=== PATIENT | male | born 2000 | race Caucasian/White ===

== ENCOUNTER 2023-05-09 12:52 | Outpatient (CLI) | payer OTHER | END 2023-05-09 12:53 | disposition home or self-care (01) | LOC: ULT 12:52 | PROVIDERS: ATTEND Urology | DX: E83.59 Other disorders of calcium metabolism (principal); R35.0 Frequency of micturition; N28.89 Other specified disorders of kidney and ureter; Z87.442 Personal history of urinary calculi | CPT/HCPCS: 74018; 76770 ==